=== PATIENT | female | born 1955 | race Hispanic/Latino ===

== ENCOUNTER 2018-03-22 12:53 | Emergency (ER) | payer MEDICARE ==
[~2018-03-22 12:53] MED LIST: ATOR40TA71 PO; CYAN25002 SL; DOCUSATE PO; LACT10SO9 PO; LEVO200T10 PO; LISI-613 PO; METF-446 PO; METOPROLOL PO; MULT-40 PO
[2018-03-22] MEDS ORDERED: OCTYL 2-CYANOACRYLATE 1 EACH TP ONE (13:10)
[2018-03-22] MEDS ORDERED: TETANUS/DIPHTHERIA TOXOID [ADULT] 0.5 ML VIAL IM ONE (13:44)
== END 2018-03-22 13:59 | disposition home or self-care (01) ==
LOC: EDH 12:53
DX: S61.210A Laceration without foreign body of right index finger without damage to nail, initial encounter (principal); E11.9 Type 2 diabetes mellitus without complications; E07.9 Disorder of thyroid, unspecified; Z90.49 Acquired absence of other specified parts of digestive tract; Z90.710 Acquired absence of both cervix and uterus; W26.8XXA Contact with other sharp object(s), not elsewhere classified, initial encounter; Y93.89 Activity, other specified; Y92.009 Unspecified place in unspecified non-institutional (private) residence as the place of occurrence of the external cause; Y99.8 Other external cause status
CPT/HCPCS: 12041; 90471; 90714

== ENCOUNTER 2018-10-24 05:01 | Inpatient (IN) | payer MEDICARE ==
[~2018-10-24] VITALS: Ht 154.9 cm; Wt 75.0 kg
[2018-10-24 05:32] LABS: BILIRUBIN,URINE Negative (NEGATIVE); COLOR,URINE Yellow (YELLOW); GLUCOSE, URINE (UA) Negative (NEGATIVE); KETONES,URINE Trace mg/dL (NEGATIVE); LEUKOCYTE ESTERASE ,URINE Moderate (NEGATIVE); NITRATE,URINE Negative (NEGATIVE); OCCULT BLOOD,URINE Negative (NEGATIVE); PROTEIN,URINE POS 1+ mg/dL (NEGATIVE)
[2018-10-24 05:34] LABS: APPEARANCE,URINE SLIGHTLY CLOUDY (CLEAR)
[2018-10-24] MEDS ORDERED: ACETAMINOPHEN EXTRA STRENGTH 500 MG TABLET ONE (05:39)
[2018-10-24] MEDS ORDERED: ONDANSETRON HCL 4 MG/2 ML VIAL ONE ×2 (05:39→12:57)
[2018-10-24 05:40] LABS: BASOPHILS % (AUTO) 0.5 % (0.0-5.0); EOSINOPHILS % (AUTO) 1.7 % (0.0-8.0); HEMATOCRIT 39.5 % (36-48); LYMPHOCYTES % (AUTO) 10.2 % (21.0-51.0); MEAN CORPUSCULAR HEMOGLOBIN 30.1 pg (27.0-33.0); MEAN CORPUSCULAR HGB CONC 33.3 g/dL (32.0-36.0); MEAN CORPUSCULAR VOLUME 90.4 fL (79-99); MONOCYTES % (AUTO) 3.3 % (3.0-13.0); NEUTROPHILS % (AUTO) 84.3 % (40.0-77.0); PLATELET COUNT (AUTO) 151 K/uL (130-400); RED BLOOD CELL COUNT(AUTO) 4.38 MIL/uL (4.00-5.50); WHITE BLOOD COUNT (AUTO) 7.4 K/uL (4.8-10.8)
[2018-10-24 05:48] LABS: BACTERIA,URINE Rare /HPF (None Seen); MUCUS,URINE Rare LPF (None Seen); RBC,URINE 0-1 /HPF (0-1); SQUAMOUS EPITHELIAL CELL,UR Few /HPF (0-2)
[2018-10-24 05:52] LABS: POTASSIUM 4.5 mmol/L (3.5-5.1)
[2018-10-24 05:56] LABS: ALBUMIN 4.1 g/dL (3.5-5.0); BILIRUBIN,TOTAL 0.6 mg/dL (0.2-1.0); TOTAL PROTEIN, SERUM 7.2 g/dL (6.0-8.3)
[2018-10-24] MEDS ORDERED: ZOSYN 3.375GM+NS 50ML 50 ML IV ONE (07:15)
[2018-10-24] MEDS: SODIUM CHLORIDE 0.9% 1000ML 1,000 ML IV SCH ×2 (07:32→17:49)
[2018-10-24] MEDS ORDERED: ACETAMINOPHEN 325 MG TAB PO PRN (07:45)
[2018-10-24] MEDS ORDERED: MORPHINE SULFATE 2 MG/ML 1ML SYG IV PRN (07:45)
[2018-10-24] MEDS ORDERED: ONDANSETRON HCL 4 MG/2 ML VIAL IV PRN (07:45)
[2018-10-24] MEDS ORDERED: ACETAMINOPHEN-CODEINE 300/30MG TAB PO PRN (07:45)
[2018-10-24] MEDS ORDERED: LACTULOSE 20 GM/30 ML UDCUP PO PRN (07:45)
[2018-10-24] MEDS ORDERED: SODIUM CHLORIDE 0.9% 1000ML 1,000 ML IV ONE (08:11)
[2018-10-24] MEDS ORDERED: FAMOTIDINE/PF 20 MG/2 ML VIAL IV ONE (08:11)
[2018-10-24] MEDS: ENOXAPARIN SODIUM 40 MG/0.4 ML SYRINGE SQ SCH (09:00)
[2018-10-24] MEDS: FAMOTIDINE/PF 20 MG/2 ML VIAL IV SCH ×2 (09:00→21:24)
[2018-10-24] MEDS ORDERED: ENOXAPARIN SODIUM 40 MG/0.4 ML SYRINGE SQ ONE (11:45)
[2018-10-24 14:40] VITALS: BP 136/83
--- NOTE | 2018-10-24 14:40 | NUR ---
ER ADMIT TO ROOM [address] MOSQUEDA AND DR. PAUL TO CONSULT. AT PRESENT STATES NOT HAVING ABD.PAIN. NG IN PLACE VIA RT. NARE AND CONNECTED TO LWIS. AFTER PLACEMENT VERIFIED
--- NOTE | 2018-10-24 15:30 | NUR ---
fredy palsy 1988 Addendum: 10/24/18 at 1534 by LIDIA RICH RN RN Amended: Links added.
--- NOTE | 2018-10-24 15:37 | NUR ---
bariatric surgery a year and has lost over a 100lbs. Addendum: 10/24/18 at 1538 by LIDIA RICH RN RN Amended: Links added.
--- NOTE | 2018-10-24 15:54 | NUR ---
maxi richard with in to see pt.now. gave order to remove ng tube.said pt. that have had bariatric sx. should not get ng tubes placed
[2018-10-24 16:00] VITALS: BP 141/70
[2018-10-24] MEDS: CEFTRIAXONE SODIUM 1 GM IVP SCH (16:40)
--- NOTE | 2018-10-24 17:30 | NUR ---
REMAINS NPO, HAS BEEN SLEEPING SINCE ARRIVED TO FLOOR.
[2018-10-24 20:00] VITALS: BP 118/63
[2018-10-25] VITALS (7 sets, daily range): BP systolic 119–158; BP diastolic 53–78
[2018-10-25 04:45] LABS: BASOPHILS % (AUTO) 0.4 % (0.0-5.0); EOSINOPHILS % (AUTO) 5.2 % (0.0-8.0); HEMATOCRIT 33.2 % (36-48); LYMPHOCYTES % (AUTO) 27.6 % (21.0-51.0); MEAN CORPUSCULAR HEMOGLOBIN 30.8 pg (27.0-33.0); MEAN CORPUSCULAR HGB CONC 34.2 g/dL (32.0-36.0); MONOCYTES % (AUTO) 6.6 % (3.0-13.0); NEUTROPHILS % (AUTO) 60.2 % (40.0-77.0); PLATELET COUNT (AUTO) 118 K/uL (130-400); RED BLOOD CELL COUNT(AUTO) 3.69 MIL/uL (4.00-5.50); RED CELL DISTRIBUTION WIDTH 12.7 % (11.0-15.5); WHITE BLOOD COUNT (AUTO) 4.9 K/uL (4.8-10.8)
[2018-10-25 04:50] LABS: CREATININE 0.8 mg/dL (0.5-1.5)
[2018-10-25] MEDS: ENOXAPARIN SODIUM 40 MG/0.4 ML SYRINGE SQ SCH (09:51)
[2018-10-25] MEDS: FAMOTIDINE/PF 20 MG/2 ML VIAL IV SCH ×2 (09:52→21:56)
[2018-10-25] MEDS: SODIUM CHLORIDE 0.9% 1000ML 1,000 ML IV SCH ×2 (09:52→16:30)
--- NOTE | 2018-10-25 12:00 | NUR ---
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
[2018-10-25] MEDS ORDERED: LACTULOSE 20 GM/30 ML UDCUP PO PRN (14:00)
--- NOTE | 2018-10-25 17:03 | NUR ---
DCP CM met with pt discussed dc plans. Pt is independent prior to admission, lives at home with spouse. Pt has a cpap. Denies any other equipments/service.s Pt feels safe to go back home, spouse able to assist with transportation and needs as necessary. DC plan to home once stable. CM to cont to follow up. Addendum: 10/25/18 at 1704 by SHAN PANDEY LVN CM Amended: Links added.
[2018-10-25] MEDS: CEFTRIAXONE SODIUM 1 GM IVP SCH (18:31)
[2018-10-25] MEDS ORDERED: LISINOPRIL 20 MG TABLET PO SCH (21:00)
[2018-10-25] MEDS: METFORMIN HCL 500 MG TABLET PO SCH (21:00)
[2018-10-25] MEDS ORDERED: ATORVASTATIN CALCIUM 40 MG TABLET PO SCH (21:00)
[2018-10-26] MEDS: SODIUM CHLORIDE 0.9% 1000ML 1,000 ML IV SCH ×2 (03:24→06:40)
[2018-10-26 03:50] VITALS: BP 149/71
[2018-10-26 05:48] LABS: BASOPHILS % (AUTO) 0.3 % (0.0-5.0); EOSINOPHILS % (AUTO) 7.6 % (0.0-8.0); HEMATOCRIT 34.1 % (36-48); LYMPHOCYTES % (AUTO) 30.2 % (21.0-51.0); MEAN CORPUSCULAR HEMOGLOBIN 30.7 pg (27.0-33.0); MEAN CORPUSCULAR HGB CONC 34.2 g/dL (32.0-36.0); MEAN CORPUSCULAR VOLUME 89.8 fL (79-99); MONOCYTES % (AUTO) 7.3 % (3.0-13.0); NEUTROPHILS % (AUTO) 54.6 % (40.0-77.0); NUCLEATED RED BLOOD CELLS 0.1 % (0.0-0.19); PLATELET COUNT (AUTO) 117 K/uL (130-400); RED CELL DISTRIBUTION WIDTH 12.8 % (11.0-15.5); WHITE BLOOD COUNT (AUTO) 4.8 K/uL (4.8-10.8)
[2018-10-26 06:01] LABS: CREATININE 0.8 mg/dL (0.5-1.5); POTASSIUM 3.7 mmol/L (3.5-5.1)
[2018-10-26] MEDS ORDERED: LEVOTHYROXINE 100 MCG TABLET PO SCH (06:30)
[2018-10-26 08:30] VITALS: BP 157/73
[2018-10-26] MEDS ORDERED: METOPROLOL TARTRATE 50 MG TAB PO SCH (09:00)
[2018-10-26] MEDS: ENOXAPARIN SODIUM 40 MG/0.4 ML SYRINGE SQ SCH (09:00)
[2018-10-26] MEDS: METFORMIN HCL 500 MG TABLET PO SCH (09:00)
[2018-10-26] MEDS: FAMOTIDINE/PF 20 MG/2 ML VIAL IV SCH (10:53)
[2018-10-26 11:00] VITALS: BP 151/84
--- NOTE | 2018-10-26 11:30 | NUR ---
LY MODI MD TO REPORT PRIMARY MD PLAN FOR POSSIBLE DISCHARGE TODAY.
[2018-10-26] MEDS ORDERED: CEFD300C3 PO (14:27)
--- NOTE | 2018-10-26 14:45 | NUR ---
LY MODI MD TO REPORT PRIMARY PLAN TO DISCHARGE TODAY AND NEED OKAY TO DISCHARGE FROM SURGEON STANDPOINT.
--- NOTE | 2018-10-26 14:46 | NUR ---
Diet Education RD provided Reinforcement Bariatric teaching. Pt with multiple questions. RD answered all questions. RD provided reference materials and handouts focused on healthy eating. Pt demonstrates and verbalizes understanding. MILTON encouraged Pt to notify as additional questions or concerns arise. Addendum: 10/26/18 at [address] RD Amended: Links added.
[2018-10-26 16:00] VITALS: BP 149/79
[2018-10-26] MEDS: CEFTRIAXONE SODIUM 1 GM IVP SCH (17:00)
--- NOTE | 2018-10-26 18:00 | NUR ---
DISCHARGE DISCHARGE TEACHING PROVIDED TO PATIENT. PROVIDED TEACHING REGARDING DISCHARGE RX(CEFIDINIR), HOME CARE OF UTI AND SBO, SCHEDULED F/U APPTS WITH DR. PAUL AND PCP, DISCHARGE DIET. PATIENT VERBALIZED UNDERSTANDING OF DISCHARGE TEACHING. REMOVED 20G IV FROM RIGHT HAND, CATHETER TIP INTACT. PATIENT REPORTS NO PAIN OR DISCOMFORTS. PATIENT REPORTS TOLERATING ADVANCED DIET AND REPORTS HAVING BOWEL MOVEMENT TODAY.
== END 2018-10-26 17:45 | disposition home or self-care (01) | DRG 389 ==
LOC: EDH 05:01 → EDHIP 07:32 → 3BH 14:45
PROVIDERS: ADMIT Internal Medicine; ATTEND Internal Medicine
PROC: 0D9670Z Drainage of Stomach with Drainage Device, Via Natural or Artificial Opening (ICD-10-PCS; principal; 2018-10-24)
DX: K56.609 Unspecified intestinal obstruction, unspecified as to partial versus complete obstruction (principal); N39.0 Urinary tract infection, site not specified; E11.9 Type 2 diabetes mellitus without complications; E66.9 Obesity, unspecified; E78.5 Hyperlipidemia, unspecified; I10 Essential (primary) hypertension; Z98.84 Bariatric surgery status; Z82.49 Family history of ischemic heart disease and other diseases of the circulatory system; Z82.3 Family history of stroke; Z83.3 Family history of diabetes mellitus; Z90.710 Acquired absence of both cervix and uterus; Z90.49 Acquired absence of other specified parts of digestive tract; Z68.31 Body mass index [BMI] 31.0-31.9, adult
CPT/HCPCS: 36415; 74018; 74176; 80048; 80053; 81001; 82948; 83690; 85025; 87088; G0378; J0696; J1650; J2405; J2543; J3490; J7030

== ENCOUNTER → 2021-07-18 | Emergency (ER) | payer MEDICARE ==
[~2021-07-18] MED LIST changes: +CEFD300C3 PO; -LISI-613 PO; +LISI20TA24 PO
== END | disposition left against medical advice (07) ==
LOC: EDH 19:21
DX: R51.9 Headache, unspecified (principal); Z53.21 Procedure and treatment not carried out due to patient leaving prior to being seen by health care provider
CPT/HCPCS: 71045; 93005